=== PATIENT | female | born 1985 | race Caucasian/White ===

== ENCOUNTER 2018-01-01 00:26 | Emergency (ER) | payer MEDICAID, OTHER ==
[2018-01-01] MEDS: SOD CHLORIDE 0.9% 1,000 ML IV (01:36)
[2018-01-01] MEDS: ONDANSETRON 4 MG INJ IV (01:36)
[2018-01-01] MEDS: MECLIZINE 12.5 MG TAB PO (01:37)
[2018-01-01] MEDS: LORAZEPAM 2 MG INJ IV (01:37)
[2018-01-01 02:35] LABS: ADD MAN DIFF? NO
[2018-01-01 02:37] LABS: WHITE BLOOD COUNT 9.2 10^3/ul (4.8-10.8)
[2018-01-01 02:37] LABS: BASOPHILS % 0.4 % (0.0-2.0); EOSINOPHILS # 0.2 10^3/ul (0.0-0.5); EOSINOPHILS % 1.6 % (0.0-7.0); HEMATOCRIT 38.8 % (37.0-47.0); HEMOGLOBIN 13.4 g/dl (12.0-16.0); LYMPHOCYTES % 32.5 % (15.0-51.0); MEAN CORPUSCULAR HEMOGLOBIN 30.9 pg (29.0-33.0); MEAN CORPUSCULAR HGB CONC 34.5 g/dl (32.0-37.0); MEAN CORPUSCULAR VOLUME 89.4 fl (82.0-101.0); MEAN PLATELET VOLUME 11.7 fl (7.4-10.4); MONOCYTE # 0.6 10^3/ul (0.3-0.9); NEUTROPHIL # 5.4 10^3/ul (1.6-7.5); NEUTROPHILS % 59.2 % (39.0-77.0); PLATELET COUNT 176 10^3/UL (140-415); RED BLOOD COUNT 4.34 10^6/ul (4.20-5.40); RED CELL DISTRIBUTION WIDTH 12.9 % (11.5-14.5)
[2018-01-01 02:38] LABS: ADD UMIC NO; UR ASCORBIC ACID NEGATIVE (NEGATIVE); UR BILIRUBIN (Dip) NEGATIVE (NEGATIVE); UR BLOOD (Dip) NEGATIVE (NEGATIVE); UR CLARITY CLEAR (CLEAR); UR COLOR YELLOW (YELLOW); UR GLUCOSE (Dip) NEGATIVE (NEGATIVE); UR KETONES (Dip) NEGATIVE (NEGATIVE); UR LEUKOCYTE ESTERASE (Dip) NEGATIVE Leu/ul (NEGATIVE); UR NITRITE (Dip) NEGATIVE (NEGATIVE); UR TOTAL PROTEIN (Dip) NEGATIVE (NEGATIVE); UR UROBILINOGEN (Dip) NEGATIVE (NEGATIVE)
[2018-01-01 03:02] LABS: ALANINE AMINOTRANSFERASE 29 IU/L (13-69); ALBUMIN 4.8 g/dl (3.3-4.9); ALBUMIN/GLOBULIN RATIO 1.33; ALKALINE PHOSPHATASE 103 IU/L (42-121); ANION GAP 20 (8-16); ASPARTATE AMINO TRANSFERASE 26 IU/L (15-46); BLOOD UREA NITROGEN 15 mg/dl (7-20); CALCIUM 9.4 mg/dl (8.4-10.2); CARBON DIOXIDE 24 mmol/L (21-31); CHLORIDE 106 mmol/L (97-110); CREATININE 0.56 mg/dl (0.44-1.00); GLUCOSE 115 mg/dl (70-220); LIPASE 132 U/L (23-300); POTASSIUM 3.4 mmol/L (3.5-5.1); SODIUM 147 mmol/L (135-144); TOTAL PROTEIN 8.4 g/dl (6.1-8.1)
[2018-01-01 03:15] LABS: AMPHETAMINE/METHAMPHETAMINE Negative (NEGATIVE); BARBITURATES Negative (NEGATIVE); BENZODIAZEPINES Negative (NEGATIVE); CANNABINOIDS Negative (NEGATIVE); COCAINE Negative (NEGATIVE); OPIATES Negative (NEGATIVE)
== END 2018-01-01 03:27 | disposition home or self-care (01) ==
LOC: FTE 00:26
DX: H81.11 Benign paroxysmal vertigo, right ear (principal); F41.9 Anxiety disorder, unspecified
CPT/HCPCS: 36415; 70450; 80053; 80307; 81003; 81025; 83690; 85025; 96374; 96375; 99285-25

== ENCOUNTER 2019-06-11 04:15 | Inpatient (IN) | payer MEDICAID ==
[2019-06-11] MEDS: LACTATED RINGER'S 1,000 ML IV ×3 (04:57→06:37)
[2019-06-11] MEDS ORDERED: OXYTOCIN 30 UNITS/LR 500 ML IV ×2 (05:00→15:30)
[2019-06-11] MEDS ORDERED: METHYLERGONOVINE 0.2 MG INJ IM ×2 (05:00→15:30)
[2019-06-11] MEDS ORDERED: CARBOPROST 250 MCG INJ IM ×2 (05:00→15:30)
[2019-06-11] MEDS ORDERED: IBUPROFEN 600 MG TAB PO (05:00)
[2019-06-11] MEDS ORDERED: BUTORPHANOL 2 MG INJ IV (05:00)
[2019-06-11] MEDS ORDERED: MISOPROSTOL 200 MCG TAB PR ×2 (05:00→15:30)
[2019-06-11 05:06] LABS: ADD MAN DIFF? NO
[2019-06-11 05:08] LABS: BASOPHILS % 0.4 % (0.0-2.0); EOSINOPHILS # 0.1 10^3/ul (0.0-0.5); EOSINOPHILS % 1.2 % (0.0-7.0); HEMATOCRIT 37.9 % (37.0-47.0); HEMOGLOBIN 12.5 g/dl (12.0-16.0); LYMPHOCYTES # 1.6 10^3/ul (0.8-2.9); LYMPHOCYTES % 23.5 % (15.0-51.0); MEAN PLATELET VOLUME 11.2 fl (7.4-10.4); MONOCYTE # 0.7 10^3/ul (0.3-0.9); MONOCYTES % 10.5 % (0.0-11.0); NEUTROPHIL # 4.5 10^3/ul (1.6-7.5); PLATELET COUNT 161 10^3/UL (140-415); RED BLOOD COUNT 4.03 10^6/ul (4.20-5.40); RED CELL DISTRIBUTION WIDTH 14.5 % (11.5-14.5)
[2019-06-11 05:28] LABS: INR 0.89; PROTIME 12.1 Sec (11.9-14.9); PT RATIO 0.9
[2019-06-11 05:29] LABS: PARTIAL THROMBOPLASTIN TIME 28.4 Sec (23.0-35.0)
[2019-06-11] MEDS ORDERED: FENTAnyl 2MCG/ML-ROPIV 0.2% 100 ML (05:45)
[2019-06-11] MEDS ORDERED: NALOXONE (0.4 MG/ML) INJ IV (06:30)
[2019-06-11 08:52] LABS: HEPATITIS B SURFACE ANTIGEN NEGATIVE (NEGATIVE)
[2019-06-11] MEDS: FENTAnyl 2MCG/ML-ROPIV 0.2% 100 ML BAG EPI ×2 (09:43→10:03)
[2019-06-11] MEDS ORDERED: ONDANSETRON 4 MG INJ (11:09)
[2019-06-11] MEDS: ONDANSETRON 4 MG INJ IV (11:30)
[2019-06-11] MEDS: MINERAL OIL LIGHT 10 ML VIAL TOP (12:39)
[2019-06-11] MEDS ORDERED: KETOROLAC 30 MG INJ IV (12:49)
[2019-06-11] MEDS: OXYTOCIN 30 UNITS/LR 500 ML IV ×2 (12:53)
[2019-06-11] MEDS: LIDOCAINE 1% (MPF) 30 ML INJ INJ (12:55)
[2019-06-11] MEDS ORDERED: HYDROCODONE/APAP (5/325) TAB PO (15:30)
[2019-06-11] MEDS ORDERED: ZOLPIDEM 5 MG TAB PO (15:30)
[2019-06-11] MEDS ORDERED: DIBUCAINE 1% 30 GM OINT TOP (15:30)
[2019-06-11] MEDS: ACETAMINOPHEN 500 MG TAB PO (15:39)
[2019-06-11 15:42] LABS: RAPID PLASMA REAGIN NONREACTIVE (NR)
[2019-06-11] MEDS: WITCH HAZEL/GLYCERIN PAD PR (16:03)
[2019-06-11] MEDS: BENZOCAINE 20% 56 ML SPRAY TOP (16:03)
[2019-06-11] MEDS: LANOLIN HPA 1 PKT TOP (16:03)
[2019-06-11] MEDS: HYDROCODONE/APAP (5/325) TAB PO (16:27)
[2019-06-11] MEDS: LACTATED RINGER'S 1,000 ML IV* ×2 (16:27→23:17)
[2019-06-11] MEDS: IBUPROFEN 600 MG TAB PO ×2 (18:00→23:57)
[2019-06-11] MEDS: CEPHALEXIN 500 MG CAP PO ×2 (18:27→23:57)
[2019-06-11] MEDS: MAGNESIUM HYDROXIDE 30ML CUP PO (21:19)
[2019-06-11] MEDS: SENNA/DOCUSATE NA (8.6MG/50MG) TAB PO (21:19)
[2019-06-12] MEDS: IBUPROFEN 600 MG TAB PO ×4 (05:48→23:35)
[2019-06-12] MEDS: CEPHALEXIN 500 MG CAP PO ×4 (05:48→23:35)
[2019-06-12] MEDS: LACTATED RINGER'S 1,000 ML IV* (07:17)
[2019-06-12 07:58] LABS: ADD MAN DIFF? NO
[2019-06-12 08:05] LABS: WHITE BLOOD COUNT 8.7 10^3/ul (4.8-10.8)
[2019-06-12 08:05] LABS: BASOPHILS % 0.2 % (0.0-2.0); EOSINOPHILS # 0.1 10^3/ul (0.0-0.5); EOSINOPHILS % 0.9 % (0.0-7.0); HEMATOCRIT 36.2 % (37.0-47.0); HEMOGLOBIN 11.9 g/dl (12.0-16.0); LYMPHOCYTES # 1.5 10^3/ul (0.8-2.9); MEAN CORPUSCULAR HEMOGLOBIN 31.6 pg (29.0-33.0); MEAN CORPUSCULAR HGB CONC 32.9 g/dl (32.0-37.0); MEAN CORPUSCULAR VOLUME 96.3 fl (82.0-101.0); MEAN PLATELET VOLUME 11.8 fl (7.4-10.4); MONOCYTE # 0.7 10^3/ul (0.3-0.9); MONOCYTES % 8.4 % (0.0-11.0); NEUTROPHIL # 6.3 10^3/ul (1.6-7.5); NEUTROPHILS % 72.9 % (39.0-77.0); PLATELET COUNT 142 10^3/UL (140-415); RED BLOOD COUNT 3.76 10^6/ul (4.20-5.40); RED CELL DISTRIBUTION WIDTH 14.6 % (11.5-14.5)
[2019-06-12] MEDS: MAGNESIUM HYDROXIDE 30ML CUP PO ×2 (08:17→21:53)
[2019-06-12] MEDS: SENNA/DOCUSATE NA (8.6MG/50MG) TAB PO ×2 (08:17→21:53)
[2019-06-13] MEDS: IBUPROFEN 600 MG TAB PO ×2 (05:44→13:44)
[2019-06-13] MEDS: CEPHALEXIN 500 MG CAP PO ×2 (05:44→13:44)
[2019-06-13] MEDS: MAGNESIUM HYDROXIDE 30ML CUP PO (09:22)
[2019-06-13] MEDS: SENNA/DOCUSATE NA (8.6MG/50MG) TAB PO (09:22)
[2019-06-13] MEDS: DIPHTH/TET/ACEL PERTUSS (ADULT) 0.5 ML VIAL IM* (09:25)
[2019-06-13] MEDS: MEASLES,MUMPS,RUBELLA VACCINE INJ SC* (09:25)
[2019-06-13] MEDS: VARICELLA VACCINE LIVE/PF 1,350 UNIT/0.5 ML ML SC* (09:26)
== END 2019-06-13 15:30 | disposition home or self-care (01) | DRG 807 ==
LOC: OBT 04:15 → L-D 04:15 → OBT 04:30 → L-D 04:30 → PP1 14:28
PROVIDERS: Obstetrics & Gynecology
PROC: 10E0XZZ Delivery of Products of Conception, External Approach (ICD-10-PCS; principal; 2019-06-11)
PROC: 0HQ9XZZ Repair Perineum Skin, External Approach (ICD-10-PCS; 2019-06-11)
PROC: 4A1HXCZ Monitoring of Products of Conception, Cardiac Rate, External Approach (ICD-10-PCS; 2019-06-11)
DX: O70.0 First degree perineal laceration during delivery (principal); Z37.0 Single live birth; Z3A.39 39 weeks gestation of pregnancy
CPT/HCPCS: 62322; 85025; 85610; 85730; 86592; 86850; 86900; 86901; 87340; 90716; 99464